=== PATIENT | female | born 1950 | race Caucasian/White ===

== ENCOUNTER 2019-06-23 17:19 | Inpatient (IN) | payer OTHER ==
[~2019-06-23] VITALS: Ht 162.6 cm; Wt 76.6 kg
--- NOTE | ~2019-06-23 | PROC ---
[address] [address] PROCEDURE REPORT Name: LIYA XIONG Room: [address] IN ..#: [id number] Admission: 06/23/19 Attend Phys: Rosey Morton MD Discharge: Date of : 48 Report #: [id number] THIS REPORT FOR: //name// cc: NASIMA GEORGES NP, KATHERINE J. NP ~ THIS REPORT FOR: //name// For GI report, please see the Provation report in [employer] 7 content. By: [id number] Records Staff BETHANIE /MARLENE
--- NOTE | ~2019-06-23 | CON ---
[address] [address] CONSULTATION Name: LIYA XIONG Room: [address] IN .R.#: [id number] Admission: 06/23/19 Attend Phys: Rosey Morton MD Discharge: Date of : 48 Report #: [id number] THIS REPORT FOR: //name// cc: NASIMA GEORGES NP, KATHERINE J. NP ~ THIS REPORT FOR: //name// CC: NASIMA Morton DATE OF SERVICE: 06/27/2019 REASON FOR CONSULT: Epigastric pain, dyspepsia, elevated lipase and liver enzymes. HISTORY OF PRESENT ILLNESS: This is a 69-year-old female with history of gallbladder surgery back in 2016, who presents with severe epigastric pain, nausea, bloating and dyspepsia. The patient had imaging studies suggestive of absence of gallbladder, mild dilation of CBD to 8 mm and some fluid in the gallbladder fossa. MRCP was followed, which did not show any filling defect in the common bile duct. Since admission, the patient's lipase has diminished and her LFTs are downtrending. Her alkaline phosphatase still in mid 200s. She clinically feels better and is passing gas. She has been tolerating clear liquids. PAST MEDICAL HISTORY: Significant for history of depression, hypertension, hysterectomy, LASIK eye surgery, back surgery, bilateral knee replacement, gallbladder disease, status post cholecystectomy. ALLERGIES: SIGNIFICANT TO LISINOPRIL AND OPIATES. MEDICATIONS: Please refer to MAR. SOCIAL HISTORY: The patient is . Denies tobacco or alcohol use. FAMILY HISTORY: Negative for GI malignancy. PHYSICAL EXAMINATION: VITAL SIGNS: Reveals blood pressure of 170/81, respirations 20, pulse 78 and temperature 98.5. LUNGS: Clear. CARDIOVASCULAR: Regular. ABDOMEN: Large, soft, tender to palpation in the epigastric region. Bowel sounds are positive. NEUROLOGIC: The patient is alert and oriented x 3. [place] [address] CONSULTATION Name: LIYA XIONG Missy Room: [address]#: [id number] Admission: 06/23/19 Attend Phys: Rosey Morton MD Discharge: Date of : 48 Report #: [id number] LABORATORY DATA: Reveal sodium of 138, potassium 3.3, BUN is 7, creatinine 0.9, glucose 108, AST is 100, ALT is 315, alkaline phosphatase 275, total bilirubin is 2.4, down from 5.3; lipase is 484 down from 2342. WBC is 5.9, hemoglobin 12.7, platelet is 210. IMAGING: As discussed above. ASSESSMENT AND PLAN: The patient with acute pancreatitis of unknown etiology. Since LFTs are elevated and alkaline phosphatase and bilirubin were elevated too, it is quite possible that the patient may had a bile duct stone that had passed. MRCP does not reveal any filling defect. The patient is starting to feel better. Viral hepatitis serology is negative. I will order autoimmune markers. I will also consider upper endoscopy to further evaluate the duodenum to assure that she does not have any duodenitis causing her pancreatitis. We will make further recommendation based on finding. By: [id number] Ledezma MD /nt
[~2019-06-23 17:19] MED LIST: CIPRO500 MG PO; HYDROCODONE-APA1 TA1 PO; LEXAPRO20 MG PO; LOPRESSOR50 PO; LOSARTAN-HCTZ1 EAC3 PO; MOBIC15 MG PO; NORCO 5-325 TA1 EACH PO; ZOFRAN ODT4 MG DISSOLVE; ZOFRAN ODT4 MG PO
[2019-06-23 17:30] VITALS: BP 164/86
[2019-06-23] MEDS ORDERED: NEURONTIN100 MG PO (17:36)
[2019-06-23] MEDS ORDERED: VITAMIN E1000 UNIT PO (17:36)
[2019-06-23] MEDS ORDERED: VITAMIN B-121000 MC2 SUBLING (17:36)
[2019-06-23] MEDS ORDERED: HYDROXYZINE HCL25 M2 PO (17:36)
[2019-06-23 17:42] LABS: URINE BLOOD NEGATIVE (Negative); URINE CLARITY CLEAR; URINE COLOR YELLOW; URINE GLUCOSE-RANDOM NEGATIVE (Negative); URINE KETONES NEGATIVE (Negative); URINE LEUKOCYTES-REFLEX NEGATIVE (Negative); URINE NITRITE-REFLEX NEGATIVE (Negative); URINE PROTEIN NEGATIVE (Negative)
[2019-06-23 17:45] LABS: ICTOTEST (BILI CONFIRMATORY) Positive (Negative); URINE BILIRUBIN 2+ (Negative)
[2019-06-23 18:35] LABS: ABSOLUTE EOSINOPHILS 0.4 thou/uL (0.0-0.7); ABSOLUTE LYMPHOCYTES 1.5 thou/uL (0.8-5.3); ABSOLUTE MONOCYTES 0.3 thou/uL (0.0-1.2); ABSOLUTE NEUTROPHILS 3.3 thou/uL (1.6-8.1); BASOPHILS 0.8 %; EOSINOPHILS 6.8 %; HEMATOCRIT 38.1 % (37.0-47.0); HEMOGLOBIN 12.9 gm/dL (12.0-15.0); LYMPHOCYTES 26.5 %; MCH 28.6 pg (26.0-34.0); MCHC 33.8 g/dL (28.0-37.0); MCV 84.6 fL (80.0-100.0); MONOCYTES 6.3 %; MPV 8.1 fl. (7.2-11.1); NUCLEATED RBCS 0 /100WBC; PLATELET COUNT* 224 thou/uL (150-400); POLYS 59.6 %; RDW-CV 15.1 % (10.5-14.5); WBC 5.5 thou/uL (4.0-11.0)
[2019-06-23 18:43] LABS: CALCIUM 8.9 mg/dL (8.5-10.1); CREATININE 0.9 mg/dL (0.6-1.3); POTASSIUM 3.1 mmol/L (3.5-5.1)
[2019-06-23 18:47] LABS: ALBUMIN 3.5 g/dL (3.4-5.0); TOTAL BILIRUBIN 3.9 mg/dL (<0.1-1.0); TOTAL PROTEIN 6.9 g/dL (6.4-8.2)
[2019-06-23 20:33] VITALS: BP 146/71
[2019-06-23 21:00] VITALS: BP 146/88
[2019-06-23] MEDS ORDERED: CELEXA 20 MG TA20 MG PO (21:04)
[2019-06-24 00:30] VITALS: BP 144/74
[2019-06-24 07:35] VITALS: BP 153/75
[2019-06-24 12:40] VITALS: BP 121/49
[2019-06-24 16:01] VITALS: BP 141/67
[2019-06-24 19:45] VITALS: BP 143/71
[2019-06-25 00:47] VITALS: BP 134/70
[2019-06-25 05:02] LABS: ABSOLUTE EOSINOPHILS 0.5 thou/uL (0.0-0.7); ABSOLUTE LYMPHOCYTES 1.5 thou/uL (0.8-5.3); ABSOLUTE MONOCYTES 0.4 thou/uL (0.0-1.2); BASOPHILS 0.6 %; EOSINOPHILS 8.3 %; HEMATOCRIT 34.7 % (37.0-47.0); HEMOGLOBIN 11.7 gm/dL (12.0-15.0); MCH 29.1 pg (26.0-34.0); MCHC 33.9 g/dL (28.0-37.0); MONOCYTES 7.2 %; MPV 8.5 fl. (7.2-11.1); NUCLEATED RBCS 0 /100WBC; PLATELET COUNT* 175 thou/uL (150-400); POLYS 55.9 %; RBC 4.03 mil/uL (4.20-5.00); RDW-CV 15.3 % (10.5-14.5); WBC 5.5 thou/uL (4.0-11.0)
[2019-06-25 05:12] LABS: ALBUMIN 2.9 g/dL (3.4-5.0); CALCIUM 8.2 mg/dL (8.5-10.1); CREATININE 0.9 mg/dL (0.6-1.3); POTASSIUM 3.8 mmol/L (3.5-5.1); TOTAL BILIRUBIN 3.5 mg/dL (<0.1-1.0); TOTAL PROTEIN 5.8 g/dL (6.4-8.2)
[2019-06-25 08:00] VITALS: BP 143/72
[2019-06-25 16:07] LABS: HEPATITIS B SURFACE AG Negative (Negative)
[2019-06-25 18:03] VITALS: BP 148/69
[2019-06-25 20:00] VITALS: BP 145/70
[2019-06-26 00:03] VITALS: BP 141/61
[2019-06-26 04:54] VITALS: BP 162/74
[2019-06-26 08:00] VITALS: BP 150/63
[2019-06-26 10:22] LABS: ABSOLUTE BASOPHILS 0.1 thou/uL (0.0-0.2); ABSOLUTE EOSINOPHILS 0.5 thou/uL (0.0-0.7); ABSOLUTE LYMPHOCYTES 1.5 thou/uL (0.8-5.3); ABSOLUTE MONOCYTES 0.4 thou/uL (0.0-1.2); ABSOLUTE NEUTROPHILS 3.5 thou/uL (1.6-8.1); BASOPHILS 1.1 %; EOSINOPHILS 8.3 %; HEMATOCRIT 37.6 % (37.0-47.0); HEMOGLOBIN 12.7 gm/dL (12.0-15.0); LYMPHOCYTES 25.3 %; MCH 28.9 pg (26.0-34.0); MCHC 33.8 g/dL (28.0-37.0); MCV 85.5 fL (80.0-100.0); MONOCYTES 6.5 %; MPV 8.5 fl. (7.2-11.1); NUCLEATED RBCS 0 /100WBC; PLATELET COUNT* 210 thou/uL (150-400); POLYS 58.8 %; RBC 4.39 mil/uL (4.20-5.00); RDW-CV 15.4 % (10.5-14.5); WBC 5.9 thou/uL (4.0-11.0)
[2019-06-26 10:40] LABS: CALCIUM 8.8 mg/dL (8.5-10.1); CREATININE 0.9 mg/dL (0.6-1.3); POTASSIUM 3.5 mmol/L (3.5-5.1)
[2019-06-26 10:45] LABS: ALBUMIN 3.2 g/dL (3.4-5.0); TOTAL BILIRUBIN 5.3 mg/dL (<0.1-1.0); TOTAL PROTEIN 6.4 g/dL (6.4-8.2)
[2019-06-26 12:00] VITALS: BP 176/76
[2019-06-26 16:00] VITALS: BP 149/74
[2019-06-26 19:10] VITALS: BP 146/67
[2019-06-27 08:01] VITALS: BP 170/81
[2019-06-27 12:36] LABS: ALBUMIN 3.3 g/dL (3.4-5.0); CALCIUM 9.1 mg/dL (8.5-10.1); CREATININE 0.9 mg/dL (0.6-1.3); POTASSIUM 3.3 mmol/L (3.5-5.1); TOTAL BILIRUBIN 2.4 mg/dL (<0.1-1.0); TOTAL PROTEIN 6.8 g/dL (6.4-8.2)
[2019-06-27 16:00] VITALS: BP 134/66
[2019-06-27 20:00] VITALS: BP 143/71
[2019-06-28 05:15] LABS: ALBUMIN 3.2 g/dL (3.4-5.0); CALCIUM 9.1 mg/dL (8.5-10.1); CREATININE 0.8 mg/dL (0.6-1.3); POTASSIUM 3.6 mmol/L (3.5-5.1)
[2019-06-28 05:43] LABS: ABSOLUTE BASOPHILS 0.1 thou/uL (0.0-0.2); ABSOLUTE EOSINOPHILS 0.4 thou/uL (0.0-0.7); ABSOLUTE LYMPHOCYTES 2.2 thou/uL (0.8-5.3); ABSOLUTE MONOCYTES 0.7 thou/uL (0.0-1.2); ABSOLUTE NEUTROPHILS 7.4 thou/uL (1.6-8.1); BASOPHILS 0.6 %; EOSINOPHILS 3.9 %; HEMATOCRIT 38.2 % (37.0-47.0); HEMOGLOBIN 12.8 gm/dL (12.0-15.0); LYMPHOCYTES 20.1 %; MCH 28.8 pg (26.0-34.0); MCHC 33.5 g/dL (28.0-37.0); MCV 85.9 fL (80.0-100.0); MONOCYTES 6.8 %; MPV 8.7 fl. (7.2-11.1); NUCLEATED RBCS 0 /100WBC; PLATELET COUNT* 238 thou/uL (150-400); POLYS 68.6 %; RBC 4.45 mil/uL (4.20-5.00); RDW-CV 15.4 % (10.5-14.5); WBC 10.9 thou/uL (4.0-11.0)
[2019-06-28 08:30] VITALS: BP 120/58
[2019-06-28 09:00] VITALS: BP 143/71
[2019-06-28 13:47] VITALS: BP 115/51
[2019-06-28 16:15] VITALS: BP 111/50
[2019-06-28 20:00] VITALS: BP 122/55
[2019-06-29] VITALS: BP 124/64
[2019-06-29 04:29] LABS: ABSOLUTE BASOPHILS 0.1 thou/uL (0.0-0.2); ABSOLUTE EOSINOPHILS 0.5 thou/uL (0.0-0.7); ABSOLUTE LYMPHOCYTES 2.3 thou/uL (0.8-5.3); ABSOLUTE MONOCYTES 0.8 thou/uL (0.0-1.2); ABSOLUTE NEUTROPHILS 5.9 thou/uL (1.6-8.1); EOSINOPHILS 5.3 %; HEMATOCRIT 38.4 % (37.0-47.0); HEMOGLOBIN 12.8 gm/dL (12.0-15.0); LYMPHOCYTES 24.1 %; MCH 28.7 pg (26.0-34.0); MCHC 33.2 g/dL (28.0-37.0); MCV 86.5 fL (80.0-100.0); MPV 8.4 fl. (7.2-11.1); NUCLEATED RBCS 0 /100WBC; PLATELET COUNT* 245 thou/uL (150-400); POLYS 61.6 %; RBC 4.44 mil/uL (4.20-5.00); RDW-CV 15.7 % (10.5-14.5); WBC 9.5 thou/uL (4.0-11.0)
[2019-06-29 05:12] LABS: ALBUMIN 3.2 g/dL (3.4-5.0); CALCIUM 9.8 mg/dL (8.5-10.1); CREATININE 0.9 mg/dL (0.6-1.3); DIRECT BILIRUBIN 0.8 mg/dL (<0.1-0.3); POTASSIUM 3.7 mmol/L (3.5-5.1); TOTAL BILIRUBIN 1.4 mg/dL (<0.1-1.0); TOTAL PROTEIN 7.2 g/dL (6.4-8.2)
[2019-06-29 08:00] VITALS: BP 112/72
[2019-06-29 11:18] VITALS: BP 112/72
[2019-06-29] MEDS ORDERED: PROTONIX40 M2 PO (11:23)
--- NOTE | 2019-06-29 12:21 | EKG ---
[place] [address] ELECTROCARDIOGRAM REPORT Name: LIYA XIONG Room: [address] IN M.R.#: [id number] Admission: 06/23/19 Attend Phys: Rosey Morton, Discharge: Date of : 48 Date of Service: 06/23/191923 Report #: [id number] THIS REPORT FOR: //name// [facility] ED Test Date: 2019-06-23 Test Time: 19:24:00 Pat Name: LIYA XIONG Department: Room: [facility] Gender: F Hand Slitter: [place] : 1950 Requested By: Nicole Orellana Order Number: [id number] MD: Karlos Jain Measurements Intervals [place] Rate: 81 P: -84 [place]: 315 QRS: -29 QRSD: 101 T: 34 QT: 384 QTc: 446 Interpretive Statements Sinus rhythm with first-degree AV block Left anterior fascicular block Low voltage, precordial leads Borderline T abnormalities, anterior leads Compared to ECG 02/04/2016 13:43:00 First degree AV block now present Low QRS voltage now present Electronically Signed On 06-24-2019 14:54:07 CDT by Karlos Jain [email or web address] <ELECTRONICALLY SIGNED> By: Karlos Jain MD, [facility] 06/24/19 1454 23 23 Karlos Jain MD, [facility] /EPI
== END 2019-06-29 12:40 | disposition home or self-care (01) | DRG 441 ==
LOC: M.ERS 17:19 → M.2W 19:21 → M.TBA-ER 19:21 → M.2W 20:28
PROVIDERS: Family Medicine; Internal Medicine; Nurse Practitioner; ADMIT Internal Medicine
PROC: 0DB68ZX Excision of Stomach, Via Natural or Artificial Opening Endoscopic, Diagnostic (ICD-10-PCS; principal; 2019-06-28)
DX: B17.9 Acute viral hepatitis, unspecified (principal); K83.1 Obstruction of bile duct; K85.90 Acute pancreatitis without necrosis or infection, unspecified; Z68.42 Body mass index [BMI] 45.0-49.9, adult; K31.9 Disease of stomach and duodenum, unspecified; K21.0 Gastro-esophageal reflux disease with esophagitis; E66.01 Morbid (severe) obesity due to excess calories; I10 Essential (primary) hypertension; Z96.653 Presence of artificial knee joint, bilateral; E80.6 Other disorders of bilirubin metabolism; R74.0 Nonspecific elevation of levels of transaminase and lactic acid dehydrogenase [LDH]; M19.90 Unspecified osteoarthritis, unspecified site; Z90.710 Acquired absence of both cervix and uterus; Z88.6 Allergy status to analgesic agent; Z88.8 Allergy status to other drugs, medicaments and biological substances

== ENCOUNTER 2019-08-22 03:17 | Emergency (ER) | payer OTHER ==
[~2019-08-22] VITALS: Ht 162.6 cm; Wt 117.9 kg
[~2019-08-22 03:17] MED LIST changes: +CELEXA 20 MG TA20 MG PO; +HYDROXYZINE HCL25 M2 PO; +NEURONTIN100 MG PO; +PROTONIX40 M2 PO; +VITAMIN B-121000 MC2 SUBLING; +VITAMIN E1000 UNIT PO
[2019-08-22] MEDS ORDERED: TRAMADOL 50 MG50 MG PO (04:41)
[2019-08-22] MEDS ORDERED: FLEXERIL PO (04:41)
[2019-08-22] MEDS ORDERED: MEDROLDOSEPACK PO (04:41)
[2019-08-22 04:48] VITALS: BP 144/87
== END 2019-08-22 04:48 | disposition home or self-care (01) ==
LOC: M.ERS 03:17
DX: M54.16 Radiculopathy, lumbar region (principal); I10 Essential (primary) hypertension; R20.0 Anesthesia of skin; M79.604 Pain in right leg; Z90.710 Acquired absence of both cervix and uterus; Z90.49 Acquired absence of other specified parts of digestive tract; Z96.653 Presence of artificial knee joint, bilateral; Z88.5 Allergy status to narcotic agent; Z88.8 Allergy status to other drugs, medicaments and biological substances

== ENCOUNTER 2020-08-13 17:56 | Emergency (ER) | payer OTHER ==
[~2020-08-13] VITALS: Ht 162.6 cm; Wt 127.0 kg
[~2020-08-13 17:56] MED LIST changes: +FLEXERIL PO; +MEDROLDOSEPACK PO; +TRAMADOL 50 MG50 MG PO
[2020-08-13] MEDS ORDERED: MEDROLDOSEPACK PO (18:25)
[2020-08-13] MEDS ORDERED: TRAMADOL 50 MG50 MG PO (18:25)
[2020-08-13 18:44] VITALS: BP 157/72
== END 2020-08-13 18:45 | disposition home or self-care (01) ==
LOC: M.ERS 17:56
DX: M54.42 Lumbago with sciatica, left side (principal); I10 Essential (primary) hypertension; Z88.5 Allergy status to narcotic agent; Z88.8 Allergy status to other drugs, medicaments and biological substances; Z79.899 Other long term (current) drug therapy; Z90.710 Acquired absence of both cervix and uterus; Z96.653 Presence of artificial knee joint, bilateral